=== PATIENT | female | born 1995 | race African-American/Black ===

== ENCOUNTER 2025-04-09 20:52 | Inpatient (IN) | payer OTHER, SELFPAY ==
[2025-04-09] VITALS (7 sets, daily range): BP systolic 147–159; BP diastolic 94–115; PULSE 69–88; RESP 15–22; TEMP 36.6; O2SAT 99–100
--- NOTE | ~2025-04-09 | CT_ITS ---
CT of the Abdomen and Pelvis: Indication: Abdominal pain Technique: 2.5 mm axial scans were obtained through the abdomen and pelvis following intravenous adm inistration of 100 cc of Omnipaque 350. Dose reduction technique was used on this scan by utilizing a utomated exposure control and iterative reconstruction technique. The dose-length product (DLP) was 3 58.52 mGy-cm. Findings: Scans through the lung bases are unremarkable. There is diffuse hepatic steatosis. The spleen, pancreas, gallbladder, adrenals and kidneys are withi n normal limits. No evidence of aortic aneurysm. No lymphadenopathy. There is probable mild extensive wall thickening of large bowel, especially descending and sigmoid co yazmin and rectum. Probable additional mild wall thickening of the distal/terminal ileum. No bowel obstr uction. No abscess or free air. Images through the pelvis were performed. Urinary bladder unremarkable. No adnexal mass seen. No asci tiffanie. Impression: Wall thickening extensively involving the descending and sigmoid colon and rectum, as well as probabl y the distal/terminal ileum. Correlate for inflammatory bowel disease or other infectious/inflammator y enterocolitis. Diffuse hepatic steatosis. Reviewed, dictated and finalized at location . Impression: Wall thickening extensively involving the descending and sigmoid colon and rect um, as well as probably the distal/terminal ileum. Correlate for inflammatory b owel disease or other infectious/inflammatory enterocolitis. Diffuse hepatic steatosis.
[2025-04-09 21:14] LABS: Hematocrit 33.4 % (37.0-47.0); Hemoglobin 11.1 g/dL (12.0-15.0); Immature Granulocyte Percent A 0.2 % (0-0.5); Lymphocytes Absolute Auto 2.08 K/mm3 (0.9-3.2); Mean Corpuscular HGB Conc 33.2 g/dl (32-36); Mean Corpuscular Hemoglobin 27.4 pg (26-34); Mean Corpuscular Volume 82.5 fl (80-100); Nucleated Red Blood Cells Absolute Auto 0.000 K/mm3 (0.0-0.012); Nucleated Red Blood Cells Perc 0.0 % (0.0-0.2); Platelet Count Result 285 k/mm3 (150-375); Red Blood Count 4.05 M/mm3 (4.2-5.4); White Blood Count 5.6 K/mm3 (4.5-10.0)
[2025-04-09 21:28] LABS: Alanine Aminotransferase 38 U/L (6-35); Albumin Level 4.0 g/dL (3.5-5.1); Alkaline Phosphatase 55 U/L (38-126); Anion Gap 7 mmol/L (4-12); Aspartate Amino Transferase 52 U/L (14-36); Bilirubin,Total 0.4 mg/dL (0.2-1.3); Blood Urea Nitrogen 6 mg/dL (7-17); Calcium 8.8 mg/dL (8.4-10.2); Carbon Dioxide 24 mmol/L (22-30); Chloride 105 mmol/L (98-107); Estimated CRCL calculation 120 ml/min; Estimated Glomerular Filt Rate > 60; Glucose 85 mg/dL (65-110); Lipase 151 U/L (23-300); Potassium 2.9 mmol/L (3.4-5.0); Sodium 136 mmol/L (137-145); Total Protein 7.4 g/dL (6.3-8.2)
[2025-04-09 23:30] LABS: BEDSIDEPREGUCG Negative (Negative)
[2025-04-09 23:45] LABS: Add Urine Microscopic? YES; Appearance Urine Cloudy (Clear); Glucose Urine UA Negative (Negative); Leukocyte Esterase Ur Trace LEU/UL (Negative); Nitrate Urine Positive (Negative); Non Pathogenic Casts 0-2; Specific Grav Ur 1.015 (1.001-1.035)
[2025-04-10] VITALS (32 sets, daily range): BP systolic 112–165; BP diastolic 69–115; PULSE 59–80; RESP 8–20; TEMP 36.3–36.7; O2SAT 93–100; BMI 23.8
[2025-04-10 00:03] LABS: Magnesium 1.3 mg/dL (1.6-2.3)
[2025-04-10] MEDS: MAGNESIUM SULF 2 GM/WATER 50ML 2 GM/50 ML BAG IVPB (00:47)
--- NOTE | 2025-04-10 01:12 | ED_ITS ---
HPI - Abdominal Pain General Chief Complaint: Abdominal Pain <LISA Hitchcock Last Filed: 04/10/25 02:52> Stated Complaint: Abd pain, blood in stool, Crohns flare up <LSIA Hitchcock Last Filed: 04/10/25 02:52> Time Seen by Provider: 04/09/25 23:47 <LISA Hitchcock Last Filed: 04/10/25 02:52> Source: patient <LISA Hitchcock Last Filed: 04/10/25 02:52> Mode of arrival: ambulatory <LISA Hitchcock Last Filed: 04/10/25 02:52> Limitations: no limitations <Юлия Lees PA-C - Last Filed: 04/10/25 02:52> History of Present Illness HPI narrative: This is a 30 year old female that presents to the ER for abdominal pain, blood in stool. Ongoing over the last week. Reports history of Chron's disease. Does not currently have a GI doctor, is not on any medications. Also reports the last time she was hospitalized for a flare she was told she may have cervical cancer and did not follow up any further. Denies fevers, vomiting, dysuria, hematuria. <Юлия Lees PA-C - Last Filed: 04/10/25 02:52> Related Data Home Medications: Home Medications ?Medication ?Instructions ?Recorded ?Confirmed ?Last Taken ?Type amlodipine 10 mg tablet 10 mg PO DAILY 04/10/25 04/10/25 Unknown History <LISA Hitchcock Last Filed: 04/10/25 02:52> Allergies/Adverse Reactions: Allergies Allergy/AdvReac Type Severity Reaction Status Date / Time No Known Allergies Allergy Verified 04/10/25 03:37 <LISA Hitchcock Last Filed: 04/10/25 02:52> Review of Systems 2 Review of Systems: All systems reviewed & are unremarkable except as noted in HPI and below <LISA Hitchcock Last Filed: 04/10/25 02:52> [facility] Past Medical History Medical History: Medical History (Updated 04/10/25 @ 14:31 by Delia Miller PA-C) HTN (hypertension) with goal to be determined Crohn disease <Юлия Lees PA-C - Last Filed: 04/10/25 02:52> Family History Family History: Family History Mother Thyroid cancer Lupus Arthritis Father CHF (congestive heart failure) Cerebrovascular accident <Юлия Lees PA-C - Last Filed: 04/10/25 02:52> Social History Social History: Social History Smoking packs per day: 0.15 Smoking cigarettes per day: 3.0 Smoking status: Current every day smoker Tobacco type: cigarettes Alcohol intake: current Substance use: current Substance use type: marijuana Do You Feel Safe in your Home?: Yes Lack of Transportation: No Lack of Food: Never True Current Housing: I Have Housing Concerned About Future Housing: No Difficulty Paying Gas/Electric Bills: YES Difficulty Paying for Meds: No Currently Unemployed: YES Education: High School Diploma/GED Difficulty w/ Childcare or Family Care: No Spiritual care concerns: No <Юлия Lees PA-C - Last Filed: 04/10/25 02:52> Exam 2 Narrative: GENERAL: Well-appearing, well-nourished, and in no acute distress. HEAD: Normocephalic, atraumatic. EYES: EOMI. CHEST: Clear to auscultation. No respiratory distress. No wheezes rales or rhonchi HEART: Regular rate and rhythm. No murmur heard. Normal peripheral pulses. ABDOMEN: Soft, nondistended, normal active bowel sounds. Tender to palpation throughout the abdomen, without guarding EXTREMITIES: Normal range of motion. No edema. SKIN: Warm, dry, no rash. NEURO: No focal deficits. Alert and oriented x3. PSYCH: Normal mood and affect RECTAL: Hemoccult negative <Юлия Lees PA-C - Last Filed: 04/10/25 02:52> Course Course Emergency Course: patient updated on her workup and recommendation for admission <Юлия Lees PA-C - Last Filed: 04/10/25 02:52> [employer]/PA Physician Supervision Patient being admitted. I was made aware of this and was available for consultation while patient was in the emergency department but otherwise did not personally evaluate her and was not directly involved in her care while in the emergency department. <Lorraine Short MD - Last Filed: 04/10/25 17:53> Consultations Consultation #1: Spoke with hospitalist about patient and workup who accepts admission < Юлия Lees PA-C - Last Filed: 04/10/25 02:52> Date: 04/10/25 <Юлия Lees PA-C - Last Filed: 04/10/25 02:52> Vital Signs Vital signs: Vital Signs Temperature 98 F 04/09/25 20:59 Pulse Rate 88 04/09/25 20:59 Respiratory Rate 18 04/09/25 20:59 Blood Pressure 158/115 H 04/09/25 20:59 Pulse Oximetry 99 04/09/25 20:59 Oxygen Delivery Room Air 04/09/25 20:59 Temperature 98.0 F 04/10/25 14:00 Pulse Rate 59 L 04/10/25 14:00 Respiratory Rate 18 04/10/25 14:00 Blood Pressure 119/72 04/10/25 15:50 Pulse Oximetry 100 04/10/25 14:00 Oxygen Delivery Room Air 04/10/25 08:00 <Юлия Lees PA-C - Last Filed: 04/10/25 02:52> Vital Signs Temperature 98 F 04/09/25 20:59 Pulse Rate 88 04/09/25 20:59 Respiratory Rate 18 04/09/25 20:59 Blood Pressure 158/115 H 04/09/25 20:59 Pulse Oximetry 99 04/09/25 20:59 Oxygen Delivery Room Air 04/09/25 20:59 Temperature 98.0 F 04/10/25 14:00 Pulse Rate 59 L 04/10/25 14:00 Respiratory Rate 18 04/10/25 14:00 Blood Pressure 119/72 04/10/25 15:50 Pulse Oximetry 100 04/10/25 14:00 Oxygen Delivery Room Air 04/10/25 08:00 <Lorraine Short MD - Last Filed: 04/10/25 17:53> MDM - Abdominal Pain MDM Narrative Medical decision making narrative: Patient presents the emergency department for abdominal pain, bloody stools. History of inflammatory bowel disease. Reports she does not currently have a GI doctor and is not on any medications. She is afebrile and nontoxic appearing. Cbc without leukocytosis. Shows normocytic anemia hemoglobin of 11.1. Metabolic panel with mild hypokalemia. Hypomagnesemia also noted. Electrolytes replaced. Urine nitrate positive with 6-10 white blood cells, patient does not have any urinary symptoms. Will await culture results. CT abdomen and pelvis shows terminal ileitis as well as distal colitis. Patient updated on her workup and recommendation for admission. Spoke with hospitalist about patient and workup who accepts admission. Will place consult for GI. Patient given a dose of Solu-Medrol in the ED <Юлия Lees PA-C - Last Filed: 04/10/25 02:52> Differential Diagnosis Differential diagnosis: Likely diverticulitis, small bowel obstruction and other (Chron's flare, hemorrhoid, fissure) <Юлия Lees PA-C - Last Filed: 04/10/25 02:52> Lab Data Attestation: I reviewed the patient's lab results. <Юлия Lees PA-C - Last Filed: 04/10/25 02:52> Result diagrams: 04/09/25 21:08 04/10/25 07:56 <Юлия Lees PA-C - Last Filed: 04/10/25 02:52> Labs: Lab Results 04/09/25 04/09/25 04/09/25 Range/Units 21:07 21:08 23:28 WBC 5.6 (4.5-10.0) K/mm3 RBC 4.05 L (4.2-5.4) M/mm3 Hgb 11.1 L (12.0-15.0) g/dL Hct 33.4 L (37.0-47.0) % MCV 82.5 (80-100) fl MCH 27.4 (26-34) pg MCHC 33.2 (32-36) g/dl RDW 14.7 H (11.5-14.5) % Plt Count 285 (150-375) k/mm3 MPV 8.5 (7.4-10.4) fl Immature Gran % (Auto) 0.2 (0-0.5) % Neut % (Auto) 47.4 (45.5-73.1) % Lymph % (Auto) 37.5 (18.3-44.2) % [place] % (Auto) 13.2 H (2.6-8.5) % Eos % (Auto) 1.3 (0-4.4) % Baso % (Auto) 0.4 (0.2-1.2) % Lymph # (Auto) 2.08 (0.9-3.2) K/mm3 [place] # (Auto) 0.7 H (0.1-0.6) K/mm3 Eos # (Auto) 0.1 (0-0.3) K/mm3 Baso # (Auto) 0.0 (0.0-0.1) K/mm3 Abs Immat Gran (auto) 0.01 (0.00-0.031) K/mm3 Absolute Neuts (auto) 2.6 (1.3-6.7) K/mm3 Absolute Nucleated RBC 0.000 (0.0-0.012) K/mm3 Nucleated RBC % 0.0 (0.0-0.2) % Sodium 136 L (137-145) mmol/L Potassium 2.9 L (3.4-5.0) mmol/L Chloride 105 (98-107) mmol/L Carbon Dioxide 24 (22-30) mmol/L Anion Gap 7 (4-12) mmol/L BUN 6 L (7-17) mg/dL Creatinine 0.60 L (0.7-1.0) mg/dL Estim Creat Clear Calc 120 ml/min Estimated GFR > 60 (59 - ) Glucose 85 (65-110) mg/dL Calcium 8.8 (8.4-10.2) mg/dL Magnesium 1.3 L (1.6-2.3) mg/dL Total Bilirubin 0.4 (0.2-1.3) mg/dL AST 52 H (14-36) U/L ALT 38 H (6-35) U/L Alkaline Phosphatase 55 (38-126) U/L Total Protein 7.4 (6.3-8.2) g/dL Albumin 4.0 (3.5-5.1) g/dL Lipase 151 (23-300) U/L Urine Color Yellow (Yellow) Urine Appearance Cloudy H (Clear) Urine pH 6.0 (5.0-9.0) Ur Specific [place] 1.015 (1.001-1.035) Urine Protein Trace (Negative) mg/dL Urine Glucose (UA) Negative (Negative) mg/dL Urine Ketones Trace H (Negative) mg/dL Ur Blood (Man) 2+ H (Negative) Urine Nitrate Positive H (Negative) Urine Bilirubin Negative (Negative) Urine Urobilinogen 0.2 (<2.0) mg/dL Leukocyte Esterase Rfl Trace H (Negative) YUE/UL Urine RBC 6-10 H (0-2) /hpf Urine WBC 6-10 H (0-3) /hpf Ur Squamous Epith Cells Few (Few) /hpf Urine Bacteria 4+ H /hpf Urine Casts 0-2 POC Urine HCG, Qual Negative (Negative) <Юлия Lees PA-C - Last Filed: 04/10/25 02:52> Lab Results 04/09/25 04/09/25 04/09/25 Range/Units 21:07 21:08 23:28 WBC 5.6 (4.5-10.0) K/mm3 RBC 4.05 L (4.2-5.4) M/mm3 Hgb 11.1 L (12.0-15.0) g/dL Hct 33.4 L (37.0-47.0) % MCV 82.5 (80-100) fl MCH 27.4 (26-34) pg MCHC 33.2 (32-36) g/dl RDW 14.7 H (11.5-14.5) % Plt Count 285 (150-375) k/mm3 MPV 8.5 (7.4-10.4) fl Immature Gran % (Auto) 0.2 (0-0.5) % Neut % (Auto) 47.4 (45.5-73.1) % Lymph % (Auto) 37.5 (18.3-44.2) % [place] % (Auto) 13.2 H (2.6-8.5) % Eos % (Auto) 1.3 (0-4.4) % Baso % (Auto) 0.4 (0.2-1.2) % Lymph # (Auto) 2.08 (0.9-3.2) K/mm3 [place] # (Auto) 0.7 H (0.1-0.6) K/mm3 Eos # (Auto) 0.1 (0-0.3) K/mm3 Baso # (Auto) 0.0 (0.0-0.1) K/mm3 Abs Immat Gran (auto) 0.01 (0.00-0.031) K/mm3 Absolute Neuts (auto) 2.6 (1.3-6.7) K/mm3 Absolute Nucleated RBC 0.000 (0.0-0.012) K/mm3 Nucleated RBC % 0.0 (0.0-0.2) % Sodium 136 L (137-145) mmol/L Potassium 2.9 L (3.4-5.0) mmol/L Chloride 105 (98-107) mmol/L Carbon Dioxide 24 (22-30) mmol/L Anion Gap 7 (4-12) mmol/L BUN 6 L (7-17) mg/dL Creatinine 0.60 L (0.7-1.0) mg/dL Estim Creat Clear Calc 120 ml/min Estimated GFR > 60 (59 - ) Glucose 85 (65-110) mg/dL Calcium 8.8 (8.4-10.2) mg/dL Magnesium 1.3 L (1.6-2.3) mg/dL Total Bilirubin 0.4 (0.2-1.3) mg/dL AST 52 H (14-36) U/L ALT 38 H (6-35) U/L Alkaline Phosphatase 55 (38-126) U/L Total Protein 7.4 (6.3-8.2) g/dL Albumin 4.0 (3.5-5.1) g/dL Lipase 151 (23-300) U/L Urine Color Yellow (Yellow) Urine Appearance Cloudy H (Clear) Urine pH 6.0 (5.0-9.0) Ur Specific [place] 1.015 (1.001-1.035) Urine Protein Trace (Negative) mg/dL Urine Glucose (UA) Negative (Negative) mg/dL Urine Ketones Trace H (Negative) mg/dL Ur Blood (Man) 2+ H (Negative) Urine Nitrate Positive H (Negative) Urine Bilirubin Negative (Negative) Urine Urobilinogen 0.2 (<2.0) mg/dL Leukocyte Esterase Rfl Trace H (Negative) YUE/UL Urine RBC 6-10 H (0-2) /hpf Urine WBC 6-10 H (0-3) /hpf Ur Squamous Epith Cells Few (Few) /hpf Urine Bacteria 4+ H /hpf Urine Casts 0-2 POC Urine HCG, Qual Negative (Negative) <Lorraine Short MD - Last Filed: 04/10/25 17:53> Imaging Data Radiologist's impression: ITS Impressions Abdomen/Pelvis CT 04/10/25 05:13 Impression: Wall thickening extensively involving the descending and sigmoid colon and rectum, as well as probably the distal/terminal ileum. Correlate for inflammatory bowel disease or other infectious/inflammatory enterocolitis. Diffuse hepatic steatosis. CT abdomen pelvis: Postsurgical changes involving ascending colon consistent with previous subsegmental colectomy. Concentric mucosal thickening of the terminal ileum extending to the anastomosis. The appearance is most consistent with inflammatory or infectious terminal ileitis. There is also mucosal prominence with hyperenhancement of the partially decompressed sigmoid colon. The appearance suggests coexisting distal colitis. No evidence for focal high- grade bowel obstruction. Cystic changes involving the right adnexa. The uterus and left adnexa are unremarkable <Юлия Lees PA-C - Last Filed: 04/10/25 02:52> ITS Impressions Abdomen/Pelvis CT 04/10/25 05:13 Impression: Wall thickening extensively involving the descending and sigmoid colon and rectum, as well as probably the distal/terminal ileum. Correlate for inflammatory bowel disease or other infectious/inflammatory enterocolitis. Diffuse hepatic steatosis. <Lorraine Short MD - Last Filed: 04/10/25 17:53> Critical Care Time Critical Care Time Critical Care Time: No <Юлия Lees PA-C - Last Filed: 04/10/25 02:52> Discharge Plan Discharge Clinical Impression: Inflammatory bowel disease, Acute hypokalemia, Hypomagnesemia <Юлия Lees PA-C - Last Filed: 04/10/25 02:52> Patient Disposition: Still a Patient <LISA Hitchcock Last Filed: 04/10/25 02:52> Condition: Stable <LISA Hitchcock Last Filed: 04/10/25 02:52>
[2025-04-10] MEDS: MORPHINE SULFATE (*CRX) 4 MG/ML INJ IV PUSH ×3 (01:18→20:42)
[2025-04-10] MEDS: ONDANSETRON INJ 4 MG/2 ML VIAL IV PUSH (01:18)
[2025-04-10] MEDS: POTASSIUM CHLORIDE INJ 40 MEQ in SODIUM CHLORIDE 0.9% IV 500 ML 130 MEQ IVPB (02:49)
[2025-04-10] MEDS: SODIUM CHLORIDE 0.9% IV 1,000 ML 125 ML IV CONT ×2 (02:50→10:04)
[2025-04-10] MEDS: ACETAMINOPHEN 500 MG TABLET 1000 MG PO (02:51)
--- NOTE | 2025-04-10 03:38 | PC.NURSE ---
PATIENT ARRIVED ON [facility] AT 0330
[2025-04-10 08:30] LABS: CRP 0.6 mg/dL (<1.0)
--- NOTE | 2025-04-10 08:38 | P.HP_ITS ---
H&P: HPI History of Present Illness Date/Time: 04/10/25 08:38 Chief Complaint: Stomach pain Narrative: Patient is a 30-year-old female with a past medical history of untreated Crohn's who presented emergency room for stomach pains. This pain started about 2 and half weeks ago and has been continuous. She noted some bright red blood in her stools starting last . The pain is diffuse but mostly in the right lower quadrant. She has had diarrhea daily because but today she is little bit more constipated. She said the stool was initially black but then turned to green and is now brown. She does not any nausea or vomiting but has not really eaten today. She has no history of C diff. Her last colonoscopy was in 2022 which showed Crohn's disease. 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 She states she has not been on preventative medication due to non adherence. She denies issues with access to care or affording medications. She denies chest pain, shortness of breath, fever, cough or any neurological symptoms. She was told at 1 point they were looking for colon cancer or cervical cancer and she can not remember which 1 but has never had a Pap smear. When asked why, she says she just has not made it a priority but will do so when she gets out of the hospital. She is from [facility] but is agreeable to continue to see GI here as an outpatient. She has no history of gastric ulcer or C diff. she says that every couple years she has to be hospitalized due to Crohn's but she battles stomach pains at home fairly often. She has a hx of HTN. No hx of IV drug use or liver problems. No dysuria or hematuria. Pt drinks about 6 beers a day. Has no hx of alcohol withdraw. She denies tremors or anxiety today. Review of Systems Review of Systems: All systems reviewed & are unremarkable except as noted in HPI and below PMFSH Past Medical History Medical History (Updated 04/10/25 @ 14:31 by Delia Miller PA-C) HTN (hypertension) with goal to be determined Crohn disease Family History Family History Mother Thyroid cancer Lupus Arthritis Father CHF (congestive heart failure) Cerebrovascular accident Social History Social History Smoking packs per day: 0.15 Smoking cigarettes per day: 3.0 Smoking status: Current every day smoker Tobacco type: cigarettes Alcohol intake: current Substance use: current Substance use type: marijuana Do You Feel Safe in your Home?: Yes Lack of Transportation: No Lack of Food: Never True Current Housing: I Have Housing Concerned About Future Housing: No Difficulty Paying Gas/Electric Bills: YES Difficulty Paying for Meds: No Currently Unemployed: YES Education: High School Diploma/GED Difficulty w/ Childcare or Family Care: No Spiritual care concerns: No Meds Home Medications and Allergies Home Medications ?Medication ?Instructions ?Recorded ?Confirmed ?Type amlodipine 10 mg tablet 10 mg PO DAILY 04/10/25 04/10/25 History Allergies Allergy/AdvReac Type Severity Reaction Status Date / Time No Known Allergies Allergy Verified 04/10/25 03:37 Vital Signs Vital Signs - 24 hr 04/09/25 20:59 04/09/25 23:17 04/09/25 23:27 Temperature 98 F Pulse Rate 88 79 69 Respiratory Rate 18 22 H 17 Blood Pressure 158/115 H 159/100 H Pulse Oximetry 99 100 Oxygen Delivery Room Air 04/09/25 23:30 04/09/25 23:31 04/09/25 23:45 Temperature Pulse Rate 76 74 74 Respiratory Rate 15 18 16 Blood Pressure 157/94 H Pulse Oximetry 100 100 100 Oxygen Delivery 04/09/25 23:46 04/10/25 00:16 04/10/25 00:17 Temperature Pulse Rate 80 71 71 Respiratory Rate 19 8 L 16 Blood Pressure 147/99 H 165/110 H Pulse Oximetry 99 100 100 Oxygen Delivery 04/10/25 00:30 04/10/25 00:31 04/10/25 00:32 Temperature Pulse Rate 71 75 73 Respiratory Rate 13 20 17 Blood Pressure 163/115 H Pulse Oximetry 100 Oxygen Delivery 04/10/25 00:45 04/10/25 00:46 04/10/25 01:00 Temperature Pulse Rate 70 70 78 Respiratory Rate 16 15 18 Blood Pressure 133/90 Pulse Oximetry 100 100 100 Oxygen Delivery 04/10/25 01:01 04/10/25 01:15 04/10/25 01:16 Temperature Pulse Rate 76 71 71 Respiratory Rate 18 15 17 Blood Pressure 146/94 H 146/95 H Pulse Oximetry 100 99 100 Oxygen Delivery 04/10/25 01:30 04/10/25 01:31 04/10/25 01:45 Temperature Pulse Rate 69 69 70 Respiratory Rate 12 13 14 Blood Pressure 135/90 Pulse Oximetry 97 98 99 Oxygen Delivery 04/10/25 01:46 04/10/25 02:00 04/10/25 02:01 Temperature Pulse Rate 67 69 66 Respiratory Rate 13 13 14 Blood Pressure 120/69 112/71 Pulse Oximetry 98 99 100 Oxygen Delivery 04/10/25 02:15 04/10/25 02:16 04/10/25 02:53 Temperature Pulse Rate 68 66 80 Respiratory Rate 14 14 14 Blood Pressure 115/74 Pulse Oximetry 100 100 Oxygen Delivery 04/10/25 02:55 04/10/25 03:00 04/10/25 03:01 Temperature Pulse Rate 72 64 63 Respiratory Rate 14 16 14 Blood Pressure 154/108 H 142/100 H Pulse Oximetry 93 100 100 Oxygen Delivery 04/10/25 03:02 04/10/25 03:15 04/10/25 03:16 Temperature Pulse Rate 72 66 68 Respiratory Rate 13 16 14 Blood Pressure 131/96 H Pulse Oximetry 100 99 99 Oxygen Delivery 04/10/25 03:20 04/10/25 03:33 04/10/25 05:22 Temperature 97.7 F 97.8 F Pulse Rate 68 63 Respiratory Rate 14 14 Blood Pressure 131/96 H 151/103 H Pulse Oximetry 99 100 Oxygen Delivery Room Air Exam Narrative: General:Well developed well nourished patient HEENT: Normocephalic, atraumatic, PERRL, Sclerae anicteric, oral mucosa moist. Neck: Supple Resp: CTA Heart: RRR with no murmurs Abd: Soft and non distended but significant pain throughout most notably the RLQ. No guarding. + bowel sounds Skin: Warm and dry Extremities: No swelling, erythema or pain to palpation Neuro: Alert and Oriented x4. No focal neurological deficits. no tremor noted H&P: Results Labs Labs: Short CBC 04/09/25 Range/Units 21:08 WBC 5.6 (4.5-10.0) K/mm3 Hgb 11.1 L (12.0-15.0) g/dL Hct 33.4 L (37.0-47.0) % Plt Count 285 (150-375) k/mm3 BMP 04/09/25 21:08 Sodium 136 L Potassium 2.9 L Chloride 105 Carbon Dioxide 24 BUN 6 L Creatinine 0.60 L Glucose 85 Calcium 8.8 Liver Function 04/09/25 Range/Units 21:08 Total Bilirubin 0.4 (0.2-1.3) mg/dL AST 52 H (14-36) U/L ALT 38 H (6-35) U/L Alkaline Phosphatase 55 (38-126) U/L Albumin 4.0 (3.5-5.1) g/dL Urine 04/09/25 Range/Units 23:28 Urine Color Yellow (Yellow) Urine Appearance Cloudy H (Clear) Urine pH 6.0 (5.0-9.0) Ur Specific [place] 1.015 (1.001-1.035) Urine Protein Trace (Negative) mg/dL Urine Glucose (UA) Negative (Negative) mg/dL Assessment and Plan Assessment and plan (1) Exacerbation of Crohn's disease: Code(s): K50.90 - Crohn's disease, unspecified, without complications Status: Acute Assessment and Plan: CT with evidence of wall thickening in descending and sigmoid colon and rectum as well as distal ileum. -pt with hx of crohns under no preventive tx and does not have a GI provider -Start IV methylprednisolone 60mg daily -IV pain medications ordered due to NPO status -GI consult -Consider stool cx but pt afebrile with nml WBC and with hx of crohns infx seems less likely so will hold off (2) Acute hypokalemia: Code(s): E87.6 - Hypokalemia Status: Acute Assessment and Plan: Likely due to diarrhea -Replace potassium as well as mag (3) Hypomagnesemia: Code(s): E83.42 - Hypomagnesemia Status: Acute Assessment and Plan: Replaced, recheck with todays labs (4) HTN (hypertension) with goal to be determined: Code(s): I10 - Essential (primary) hypertension Status: Acute Assessment and Plan: Likely more elevated d/t pain -start home amlodipine -may consider PRN tx but will wait until she gets her home medications and see how she runs (5) Pyuria: Code(s): R82.81 - Pyuria Status: Acute Assessment and Plan: UA appears infectious but pt not symptomatic -ceftriaxone, await urine culture (6) Transaminitis: Code(s): R74.01 - Elevation of levels of liver transaminase levels Status: Acute Assessment and Plan: Noted on labs -check hepatitis panel -hepatic steatosis noted on CT -f/u with GI, consider u/s (7) Alcohol use: Code(s): F10.90 - Alcohol use, unspecified, uncomplicated Status: Acute Assessment and Plan: drinks 6 beers a day -no hx of withdraw -no anxiety, tremors or concerns as of now -CIWA w/ ativan for scores 8 or higher Plan Encouraged pt to f/u with OBGYN for routine pap smear SCDs due to concerns for blood in stool SP for this history and physical Dr. Weber Quality VTE Prophylaxis VTE prophylaxis: mechanical ordered
[2025-04-10 10:16] LABS: Alanine Aminotransferase 37 U/L (6-35); Albumin Level 4.2 g/dL (3.5-5.1); Alkaline Phosphatase 65 U/L (38-126); Anion Gap 12 mmol/L (4-12); Aspartate Amino Transferase 46 U/L (14-36); Bilirubin,Total 0.4 mg/dL (0.2-1.3); Blood Urea Nitrogen 5 mg/dL (7-17); Calcium 8.5 mg/dL (8.4-10.2); Carbon Dioxide 20 mmol/L (22-30); Chloride 105 mmol/L (98-107); Estimated CRCL calculation 129 ml/min; Estimated Glomerular Filt Rate > 60; Glucose 93 mg/dL (65-110); Magnesium 1.8 mg/dL (1.6-2.3); Potassium 3.6 mmol/L (3.4-5.0); Sodium 137 mmol/L (137-145); Total Protein 7.7 g/dL (6.3-8.2)
[2025-04-10 10:50] LABS: Hepatitis B Surface Antigen Negative (Negative)
[2025-04-10] MEDS: MORPHINE SULFATE (*CRX) 2 MG/ML INJ IV PUSH ×2 (11:58→13:30)
--- NOTE | 2025-04-10 13:59 | P.CONGI_ITS ---
Assessment and Plan Assessment and plan (1) Crohn disease: Code(s): K50.90 - Crohn's disease, unspecified, without complications Status: Acute Assessment and Plan: The patient is likely experiencing an acute exacerbation of Crohn's disease, which has been largely untreated for the past 10 years. To accurately stage the disease extension and severity, we will perform a colonoscopy tomorrow . In addition to the colonoscopy, we will order the following laboratory tests to assess for appropriate biologic therapy: QuantiFERON, HBsAg, TPMT phenotype, stool calprotectin, and CRP. The patient will likely require systemic steroids to manage the current flare until a suitable biologic therapy can be determined. GI Consult Note Consult date/time: 04/10/25 13:59 Reason for consult: History of Crohn's disease HPI: Zohra Kenney is a 30-year-old female with a history of Crohn's disease, diagnosed in 2014. She was initially placed on steroids but did not follow up with a data entry technician after tapering off the medication. In 2015, she experienced a severe flare-up, complicated by a fistula and intestinal obstruction, leading to a resection at [facility]; she does not recall the resected intestinal segment. Another flare-up in 2018 was treated by her general physician, again without gastroenterology consultation. She was doing well until one week prior to admission when she developed severe, crampy lower abdominal pain with bloody diarrhea. She is currently taking no medication for Crohn's disease. A CT scan revealed wall thickening in the descending and sigmoid colon, with possible terminal ileum involvement. Admission laboratory data included a white count of 5.6, hemoglobin of 11.1, hematocrit of 33.4, platelet count of 286, sodium of 136, potassium of 2.9, BUN of 6, creatinine of 0.6, AST of 52, and ALT of 38. Review of Systems 2 Review of Systems: All systems reviewed & are unremarkable except as noted in HPI and below PMFSH Past Medical History Medical History (Updated 04/10/25 @ 08:49 by Delia Miller PA-C) Crohn disease Family History Family History (Updated 04/10/25 @ 03:49 by Kobi Antonio RN) Mother Thyroid cancer Lupus Arthritis Father CHF (congestive heart failure) Cerebrovascular accident Social History Social History Smoking packs per day: 0.15 Smoking cigarettes per day: 3.0 Smoking status: Current every day smoker Tobacco type: cigarettes Alcohol intake: current Substance use: current Substance use type: marijuana Do You Feel Safe in your Home?: Yes Lack of Transportation: No Lack of Food: Never True Current Housing: I Have Housing Concerned About Future Housing: No Difficulty Paying Gas/Electric Bills: YES Difficulty Paying for Meds: No Currently Unemployed: YES Education: High School Diploma/GED Difficulty w/ Childcare or Family Care: No Spiritual care concerns: No Meds Home Medications and Allergies Home Medications ?Medication ?Instructions ?Recorded ?Confirmed ?Type amlodipine 10 mg tablet 10 mg PO DAILY 04/10/25 04/10/25 History Allergies Allergy/AdvReac Type Severity Reaction Status Date / Time No Known Allergies Allergy Verified 04/10/25 03:37 Vital Signs Vital Signs - 24 hr 04/09/25 20:59 04/09/25 23:17 04/09/25 23:27 Temperature 98 F Pulse Rate 88 79 69 Respiratory Rate 18 22 H 17 Blood Pressure 158/115 H 159/100 H Pulse Oximetry 99 100 Oxygen Delivery Room Air 04/09/25 23:30 04/09/25 23:31 04/09/25 23:45 Temperature Pulse Rate 76 74 74 Respiratory Rate 15 18 16 Blood Pressure 157/94 H Pulse Oximetry 100 100 100 Oxygen Delivery 04/09/25 23:46 04/10/25 00:16 04/10/25 00:17 Temperature Pulse Rate 80 71 71 Respiratory Rate 19 8 L 16 Blood Pressure 147/99 H 165/110 H Pulse Oximetry 99 100 100 Oxygen Delivery 04/10/25 00:30 04/10/25 00:31 04/10/25 00:32 Temperature Pulse Rate 71 75 73 Respiratory Rate 13 20 17 Blood Pressure 163/115 H Pulse Oximetry 100 Oxygen Delivery 04/10/25 00:45 04/10/25 00:46 04/10/25 01:00 Temperature Pulse Rate 70 70 78 Respiratory Rate 16 15 18 Blood Pressure 133/90 Pulse Oximetry 100 100 100 Oxygen Delivery 04/10/25 01:01 04/10/25 01:15 04/10/25 01:16 Temperature Pulse Rate 76 71 71 Respiratory Rate 18 15 17 Blood Pressure 146/94 H 146/95 H Pulse Oximetry 100 99 100 Oxygen Delivery 04/10/25 01:30 04/10/25 01:31 04/10/25 01:45 Temperature Pulse Rate 69 69 70 Respiratory Rate 12 13 14 Blood Pressure 135/90 Pulse Oximetry 97 98 99 Oxygen Delivery 04/10/25 01:46 04/10/25 02:00 04/10/25 02:01 Temperature Pulse Rate 67 69 66 Respiratory Rate 13 13 14 Blood Pressure 120/69 112/71 Pulse Oximetry 98 99 100 Oxygen Delivery 04/10/25 02:15 04/10/25 02:16 04/10/25 02:53 Temperature Pulse Rate 68 66 80 Respiratory Rate 14 14 14 Blood Pressure 115/74 Pulse Oximetry 100 100 Oxygen Delivery 04/10/25 02:55 04/10/25 03:00 04/10/25 03:01 Temperature Pulse Rate 72 64 63 Respiratory Rate 14 16 14 Blood Pressure 154/108 H 142/100 H Pulse Oximetry 93 100 100 Oxygen Delivery 04/10/25 03:02 04/10/25 03:15 04/10/25 03:16 Temperature Pulse Rate 72 66 68 Respiratory Rate 13 16 14 Blood Pressure 131/96 H Pulse Oximetry 100 99 99 Oxygen Delivery 04/10/25 03:20 04/10/25 03:33 04/10/25 05:22 Temperature 97.7 F 97.8 F Pulse Rate 68 63 Respiratory Rate 14 14 Blood Pressure 131/96 H 151/103 H Pulse Oximetry 99 100 Oxygen Delivery Room Air 04/10/25 08:00 Temperature Pulse Rate Respiratory Rate Blood Pressure Pulse Oximetry 100 Oxygen Delivery Room Air Exam 2 Const: General: cooperative and healthy appearing Resp: Effort & Inspection: normal respiratory effort and able to speak in complete sentences Auscultation: clear to auscultation bilaterally Cardio: Rate: regular rate Rhythm: regular rhythm GI: Inspection: normal to inspection GI Palp: No No hepatosplenomegaly present Auscultation: normal bowel sounds Rectal Exam: deferred Skin: General skin exam: normal color Psych: Appearance: grossly normal Mental Status: mental status grossly normal Results Labs 04/09/25 21:08 04/10/25 07:56 Labs: Short CBC 04/09/25 Range/Units 21:08 WBC 5.6 (4.5-10.0) K/mm3 Hgb 11.1 L (12.0-15.0) g/dL Hct 33.4 L (37.0-47.0) % Plt Count 285 (150-375) k/mm3 BMP 04/09/25 04/10/25 21:08 07:56 Sodium 136 L 137 Potassium 2.9 L 3.6 Chloride 105 105 Carbon Dioxide 24 20 L BUN 6 L 5 L Creatinine 0.60 L 0.55 L Glucose 85 93 Calcium 8.8 8.5 Liver Function 04/09/25 04/10/25 Range/Units 21:08 07:56 Total Bilirubin 0.4 0.4 (0.2-1.3) mg/dL AST 52 H 46 H (14-36) U/L ALT 38 H 37 H (6-35) U/L Alkaline Phosphatase 55 65 (38-126) U/L Albumin 4.0 4.2 (3.5-5.1) g/dL Urine 04/09/25 Range/Units 23:28 Urine Color Yellow (Yellow) Urine Appearance Cloudy H (Clear) Urine pH 6.0 (5.0-9.0) Ur Specific [place] 1.015 (1.001-1.035) Urine Protein Trace (Negative) mg/dL Urine Glucose (UA) Negative (Negative) mg/dL
[2025-04-11] VITALS (11 sets, daily range): BP systolic 113–127; BP diastolic 71–85; PULSE 56–74; RESP 10–26; TEMP 36.1–37.7; O2SAT 97–100
[2025-04-11] MEDS: MORPHINE SULFATE (*CRX) 4 MG/ML INJ IV PUSH ×4 (02:01→21:16)
[2025-04-11 06:40] LABS: Hematocrit 33.9 % (37.0-47.0); Hemoglobin 11.4 g/dL (12.0-15.0); Mean Corpuscular HGB Conc 33.6 g/dl (32-36); Mean Corpuscular Hemoglobin 28.1 pg (26-34); Mean Corpuscular Volume 83.7 fl (80-100); Platelet Count Result 345 k/mm3 (150-375); Red Blood Count 4.05 M/mm3 (4.2-5.4); White Blood Count 4.3 K/mm3 (4.5-10.0)
[2025-04-11 07:03] LABS: Alanine Aminotransferase 33 U/L (6-35); Albumin Level 3.9 g/dL (3.5-5.1); Alkaline Phosphatase 50 U/L (38-126); Anion Gap 9 mmol/L (4-12); Aspartate Amino Transferase 38 U/L (14-36); Bilirubin,Total 0.5 mg/dL (0.2-1.3); Blood Urea Nitrogen 4 mg/dL (7-17); Calcium 8.9 mg/dL (8.4-10.2); Carbon Dioxide 26 mmol/L (22-30); Chloride 104 mmol/L (98-107); Estimated CRCL calculation 114 ml/min; Estimated Glomerular Filt Rate > 60; Glucose 123 mg/dL (65-110); Magnesium 1.8 mg/dL (1.6-2.3); Potassium 3.7 mmol/L (3.4-5.0); Sodium 139 mmol/L (137-145); Total Protein 7.2 g/dL (6.3-8.2)
[2025-04-11 09:34] LABS: Hepatitis B Surface Antigen Negative (Negative)
[2025-04-11 09:40] LABS: HAV RESULT Negative (Negative); Hepatitis B Core IgM Result Negative (Negative)
--- NOTE | 2025-04-11 11:05 | P.PNIM_ITS ---
Progress Note: A&P Assessment and Plan (1) Exacerbation of Crohn's disease: Code(s): K50.90 - Crohn's disease, unspecified, without complications Status: Acute Assessment and Plan: CT with evidence of wall thickening in descending and sigmoid colon and rectum as well as distal ileum. Patient with hx of crohns under no preventive tx and does not have a GI provider. ascending colon was previously removed * continue IV methylprednisolone 60mg daily * IV pain medications * full liquid diet will advance as tolerated per GI * GI consulted * Antiemetics * Colonoscopy today 04/11/2025: Severe diffuse chronic disease a distal ileum with stenosis, ulcerations and diffuse erythema and edema mucosa (2) Acute hypokalemia: Code(s): E87.6 - Hypokalemia Status: Acute Assessment and Plan: * Trend 3.7 today * replenish as needed (3) Hypomagnesemia: Code(s): E83.42 - Hypomagnesemia Status: Acute Assessment and Plan: * Trend 1.8 today * replenish as needed (4) HTN (hypertension) with goal to be determined: Code(s): I10 - Essential (primary) hypertension Status: Acute Assessment and Plan: * Reviewed today stable * continue amlodipine * Bp per unit protocol (5) Pyuria: Code(s): R82.81 - Pyuria Status: Acute Assessment and Plan: UA appears infectious but pt not symptomatic * ceftriaxone, await urine culture (6) Transaminitis: Code(s): R74.01 - Elevation of levels of liver transaminase levels Status: Acute Assessment and Plan: Noted on labs improving * hepatitis panel negative * hepatic steatosis noted on CT (7) Alcohol use: Code(s): F10.90 - Alcohol use, unspecified, uncomplicated Status: Acute Assessment and Plan: drinks 6 beers a day * no hx of withdraw * no anxiety, tremors or concerns as of now * LONNYWA w/ ativan for scores 8 or higher Plan Code status: Full code per patient DVT prophylaxis: SCD's Stress ulcer prophylaxis: NA PT/OT notes: Ambulatory Disposition: Patient continues admission to the medical unit for Crohn's exacerbation will continue with NPO status and IV methylprednisone. patient ambulatory on own plan will be to discharge home when medically stable Time Spent With Patient Time with patient: 15 - 25 minutes Subjective Date/time seen: 04/11/25 11:05 Interval history: Patient is a 30-year-old female who was admitted for further evaluation and treatment Crohn's exacerbation 04/12/2025: Patient seen post Colonoscopy tolerated procedure rates current ABD pain 6/10, sever ulcerations and inflammation noted on colonoscopy report. Patient afebrile, denies any chills, CP, SOB tolerating full liquid currently. Review of Systems Review of Systems: All systems reviewed & are unremarkable except as noted in HPI and below Exam Narrative: General:Well developed well nourished patient HEENT: Normocephalic, atraumatic, PERRL, Sclerae anicteric, oral mucosa moist. Neck: Supple Resp: CTA Heart: RRR with no murmurs Abd: Soft and non distended but significant pain throughout most notably the RLQ. No guarding. + bowel sounds Skin: Warm and dry Extremities: No swelling, erythema or pain to palpation Neuro: Alert and Oriented x4. No focal neurological deficits. no tremor noted Objective Data Vital Signs Vital Signs: Vital Signs - 24 hr 04/10/25 14:00 04/10/25 15:50 04/10/25 20:00 Temperature 98.0 F Pulse Rate 59 L Respiratory Rate 18 Blood Pressure 117/85 119/72 Pulse Oximetry 100 Oxygen Delivery Room Air 04/10/25 20:11 04/11/25 05:08 Temperature 97.3 F L 97.8 F Pulse Rate 62 73 Respiratory Rate 16 16 Blood Pressure 121/82 114/75 Pulse Oximetry 100 100 Oxygen Delivery Intake/Output Intake/Output: Intake & Output 04/08/25 04/09/25 04/10/25 04/11/25 23:59 23:59 23:59 23:59 Intake Total 2584.2 Balance 2584.2 Meds/Results Medications: Active Medications Generic Name Dose Route Start Last Admin Trade Name Freq PRN Reason Stop Dose Admin Amlodipine Besylate 10 mg 04/10/25 09:00 04/11/25 09:14 Amlodipine Besylate 10 Mg Tablet PO 10 mg DAILY ORALIA Administration Ceftriaxone Sodium 1 gm in 50 mls @ 100 mls/hr 04/10/25 09:00 04/11/25 09:14 Rocephin 1 Gm/Ns 50 Ml IVPB 100 mls/hr Q24H ORALIA Administration Lorazepam 0.5 mg 04/10/25 14:36 Lorazepam Inj (*Crx) 2 Mg/Ml Vial IV PUSH Q6H PRN ciwa Methylprednisolone Sodium Succinate 60 mg 04/11/25 09:00 04/11/25 09:14 Methylprednisolone Sod Succ 125 Mg Vial IV PUSH 60 mg DAILY ORALIA Administration Morphine Sulfate 2 mg 04/10/25 06:57 04/10/25 13:30 Morphine Sulfate (*Crx) 2 Mg/Ml Inj IV PUSH 2 mg Q4H PRN Administration Pain Rated 4-6 Morphine Sulfate 4 mg 04/10/25 06:57 04/11/25 06:25 Morphine Sulfate (*Crx) 4 Mg/Ml Inj IV PUSH 4 mg Q4H PRN Administration Pain Rated 7-10 Radiology Results: ITS Impressions Abdomen/Pelvis CT 04/10/25 05:13 Impression: Wall thickening extensively involving the descending and sigmoid colon and rectum, as well as probably the distal/terminal ileum. Correlate for inflammatory bowel disease or other infectious/inflammatory enterocolitis. Diffuse hepatic steatosis. Labs Labs: Laboratory Results - last 24 hr 04/11/25 06:17 WBC 4.3 L RBC 4.05 L Hgb 11.4 L Hct 33.9 L MCV 83.7 MCH 28.1 MCHC 33.6 RDW 14.6 H Plt Count 345 MPV 8.8 Sodium 139 Potassium 3.7 Chloride 104 Carbon Dioxide 26 Anion Gap 9 BUN 4 L Creatinine 0.63 L Estim Creat Clear Calc 114 Estimated GFR > 60 Glucose 123 H Calcium 8.9 Magnesium 1.8 Total Bilirubin 0.5 AST 38 H ALT 33 Alkaline Phosphatase 50 Total Protein 7.2 Albumin 3.9 Hepatitis A IgM Ab Negative Hep Bs Antigen Negative Hep B Core IgM Ab Negative Hepatitis C Ab Screen Negative Quality VTE Prophylaxis VTE prophylaxis: mechanical ordered -Patient's previous records reviewed on admission -ER notes reviewed in detail on admission -discussed all findings and current treatment plan with patient/Family/POA -Consultations reviewed for recommendations -Patient's disposition for safe discharge discussed with patient case coordinator Dictation performed by JOSE Fluency direct speech recognition software, therefore immigration consultant variants and typographical errors may occur. Hospitalist SHANEKA Advance Care Plan I have confirmed that the patient's Advanced Care Plan is present, code status is documented, or surrogate decision maker is listed in patient medical record.: Yes Medication Reconciliation I have utilized all available resources to obtain, update and review the patients current medications (includes all prescriptions, OTC, herbals, cannabis, and nutritional supplements).: Yes The patient is not eligible for med reconciliation; the patient is in a emergent medical situation where delaying treatment would jeopardize the patients health.: No
[2025-04-11] MEDS: MORPHINE SULFATE (*CRX) 2 MG/ML INJ IV PUSH ×2 (11:56→22:42)
--- NOTE | 2025-04-11 12:01 | WPDANESEPPF ---
Anes - Initial Pre Proc Eval Procedure: Operation Date: 04/11/25 15:00 Proposed Procedures p Diagnostic Colonoscopy - Jerry Leal MD Date/Time: 04/11/25 12:01 Surgeon: Elvis Pre Op Diagnosis: Chron's flare Patient Data Age: 30 Gender: F Height: 1.75 m Weight: 73.3 kg Last Vital Signs Temp 36.6 C 04/11/25 05:08 Pulse 73 04/11/25 05:08 Resp 16 04/11/25 05:08 BP 114/75 04/11/25 05:08 Pulse Ox 100 04/11/25 05:08 O2 Del Method Room Air 04/10/25 20:00 Allergies Allergy/AdvReac Type Severity Reaction Status Date / Time No Known Allergies Allergy Verified 04/11/25 12:28 Home Medications ?Medication ?Instructions ?Recorded ?Confirmed ?Type amlodipine 10 mg tablet 10 mg PO DAILY 04/10/25 04/10/25 History Laboratory Tests 04/11/25 06:17 WBC 4.3 L K/mm3 (4.5-10.0) RBC 4.05 L M/mm3 (4.2-5.4) Hgb 11.4 L g/dL (12.0-15.0) Hct 33.9 L % (37.0-47.0) MCV 83.7 fl (80-100) MCH 28.1 pg (26-34) MCHC 33.6 g/dl (32-36) RDW 14.6 H % (11.5-14.5) Plt Count 345 k/mm3 (150-375) MPV 8.8 fl (7.4-10.4) Sodium 139 mmol/L (137-145) Potassium 3.7 mmol/L (3.4-5.0) Chloride 104 mmol/L (98-107) Carbon Dioxide 26 mmol/L (22-30) Anion Gap 9 mmol/L (4-12) BUN 4 L mg/dL (7-17) Creatinine 0.63 L mg/dL (0.7-1.0) Estim Creat Clear Calc 114 ml/min Estimated GFR > 60 (59 - ) Glucose 123 H mg/dL (65-110) Calcium 8.9 mg/dL (8.4-10.2) Magnesium 1.8 mg/dL (1.6-2.3) Total Bilirubin 0.5 mg/dL (0.2-1.3) AST 38 H U/L (14-36) ALT 33 U/L (6-35) Alkaline Phosphatase 50 U/L (38-126) Total Protein 7.2 g/dL (6.3-8.2) Albumin 3.9 g/dL (3.5-5.1) Hepatitis A IgM Ab Negative (Negative) Hep Bs Antigen Negative (Negative) Hep B Core IgM Ab Negative (Negative) Hepatitis C Ab Screen Negative (Negative) Patient hx anesthesia problems: none Family hx anesthesia problems: none Results Review: All pre-operative results and documents have been reviewed as part of the pre-operative evaluation. [facility] Past Medical History Medical History (Updated 04/10/25 @ 14:31 by Delia Miller PA-C) HTN (hypertension) with goal to be determined Crohn disease Family History Family History Mother Thyroid cancer Lupus Arthritis Father CHF (congestive heart failure) Cerebrovascular accident Social History Social History (Updated 04/11/25 @ 12:55 by Manuel Camargo DO) Smoking packs per day: 0.15 Smoking cigarettes per day: 3.0 Smoking status: Current every day smoker Tobacco type: cigarettes Alcohol intake: current Alcohol use details: 6/day Substance use: current Substance use type: marijuana Do You Feel Safe in your Home?: Yes Lack of Transportation: No Lack of Food: Never True Current Housing: I Have Housing Concerned About Future Housing: No Difficulty Paying Gas/Electric Bills: YES Difficulty Paying for Meds: No Currently Unemployed: YES Education: High School Diploma/GED Difficulty w/ Childcare or Family Care: No Spiritual care concerns: No Anes - Eval Final PreProcedure Day of Procedure 04/11/25 12:01 Patient weight: normal Heart: regular rate and rhythm Lungs: clear to auscultation and normal air movement Airway: Mallampati scale class II Neurological: alert and oriented Last oral intake: >/= 8 hours ASA classification: III Emergent: no Anesthetic plan: proceed Anesthesia type and monitoring: general GIVS and standard monitoring Results Review: All pre-operative results and documents have been reviewed as part of the pre-operative evaluation. Informed Consent: The patient's anesthetic plan and its attendant risks and benefits were discussed with the patient/family/POA. Questions were solicited and answers provided to the satisfaction of the patient/family/POA.
[2025-04-11] MEDS: LACTATED RINGERS 1,000 ML 150 ML IV CONT (12:33)
--- NOTE | 2025-04-11 13:26 | S_PTH ---
PATIENT: Zohra Kenney LOC: [id number] U#:[id number] AGE/SX: 30/F ROOM: 313 RE04/12/[address]: Cesar Lopez MD : 1995 BED: 01 DIS: 04/13/2025 SPEC #: [id number] RECD: 04/11/25 13:50 STATUS: JENNIFER REQ #: [id number] JEREMÍAS: 04/11/25 13:[address]: Jerry Leal DEPT: [facility] Surgical RECD BY: Jluis Bhat ENTERED: 04/11/25 13:51 SP TYPE: Surgical OTHR DR: LISA Montero APRN Haresh K. Motwani, MD VIDEO EDITING INTERN PHYSICIAN Solomon Weber MD Tissues: A - Small Bowel Bx Procedures: Hematoxylin and Eosin Stain Gross and Microscopic Level 4
--- NOTE | 2025-04-11 13:35 | P.PNGI_ITS ---
Progress Note: A&P Assessment and Plan (1) Crohn disease: Code(s): K50.90 - Crohn's disease, unspecified, without complications Status: Acute Assessment and Plan: See colonoscopy report. There is severe active ulcerating and inflammatory activity at the ileocolonic anastomosis and the distal ileal mucosa. Will start intravenous Solu-Medrol today and wait for clinical response. He is definitely a candidate for biologic therapy once all the labs requested are clear. HBsAg is negative. Subjective Date/time seen: 04/11/25 13:35 Interval history: The patient continued to have abdominal pain, requiring frequent morphine injections. Exam Narrative: Abdomen: Diffuse tenderness to palpation especially in lower quadrants. Rest of the exam unchanged from admission. Objective Data Vital Signs Vital Signs: Vital Signs - 24 hr 04/10/25 14:00 04/10/25 15:50 04/10/25 20:00 Temperature 98.0 F Pulse Rate 59 L Respiratory Rate 18 Blood Pressure 117/85 119/72 Pulse Oximetry 100 Oxygen Delivery Room Air 04/10/25 20:11 04/11/25 05:08 04/11/25 08:00 Temperature 97.3 F L 97.8 F Pulse Rate 62 73 Respiratory Rate 16 16 Blood Pressure 121/82 114/75 118/79 Pulse Oximetry 100 100 Oxygen Delivery 04/11/25 08:00 04/11/25 12:00 04/11/25 12:30 Temperature 97 F L Pulse Rate 56 L Respiratory Rate 18 Blood Pressure 117/74 122/85 Pulse Oximetry 100 100 Oxygen Delivery Room Air Room Air Intake/Output Intake/Output: Intake & Output 04/08/25 04/09/25 04/10/25 04/11/25 23:59 23:59 23:59 23:59 Intake Total 2584.2 135 Balance 2584.2 135 Meds/Results Medications: Active Medications Generic Name Dose Route Start Last Admin Trade Name Freq PRN Reason Stop Dose Admin Amlodipine Besylate 10 mg 04/10/25 09:00 04/11/25 09:14 Amlodipine Besylate 10 Mg Tablet PO 10 mg DAILY ORALIA Administration Ceftriaxone Sodium 1 gm in 50 mls @ 100 mls/hr 04/10/25 09:00 04/11/25 09:14 Rocephin 1 Gm/Ns 50 Ml IVPB 100 mls/hr Q24H ORALIA Administration Lactated Ringer's 1,000 mls @ 150 mls/hr 04/11/25 12:05 04/11/25 13:27 Lr - Lactated Ringers Iv IV CONT 150 mls/hr .[id number] ORALIA Infusion Lorazepam 0.5 mg 04/10/25 14:36 Lorazepam Inj (*Crx) 2 Mg/Ml Vial IV PUSH Q6H PRN ciwa Methylprednisolone Sodium Succinate 60 mg 04/11/25 09:00 04/11/25 09:14 Methylprednisolone Sod Succ 125 Mg Vial IV PUSH 60 mg DAILY ORALIA Administration Morphine Sulfate 2 mg 04/10/25 06:57 04/11/25 11:56 Morphine Sulfate (*Crx) 2 Mg/Ml Inj IV PUSH 2 mg Q4H PRN Administration Pain Rated 4-6 Morphine Sulfate 4 mg 04/10/25 06:57 04/11/25 06:25 Morphine Sulfate (*Crx) 4 Mg/Ml Inj IV PUSH 4 mg Q4H PRN Administration Pain Rated 7-10 Radiology Results: ITS Impressions Abdomen/Pelvis CT 04/10/25 05:13 Impression: Wall thickening extensively involving the descending and sigmoid colon and re ctum, as well as probably the distal/terminal ileum. Correlate for inflammatory bowel disease or other infectious/inflammatory enterocolitis. Diffuse hepatic steatosis. Labs Labs: Laboratory Results - last 24 hr 04/11/25 06:17 WBC 4.3 L RBC 4.05 L Hgb 11.4 L Hct 33.9 L MCV 83.7 MCH 28.1 MCHC 33.6 RDW 14.6 H Plt Count 345 MPV 8.8 Sodium 139 Potassium 3.7 Chloride 104 Carbon Dioxide 26 Anion Gap 9 BUN 4 L Creatinine 0.63 L Estim Creat Clear Calc 114 Estimated GFR > 60 Glucose 123 H Calcium 8.9 Magnesium 1.8 Total Bilirubin 0.5 AST 38 H ALT 33 Alkaline Phosphatase 50 Total Protein 7.2 Albumin 3.9 Hepatitis A IgM Ab Negative Hep Bs Antigen Negative Hep B Core IgM Ab Negative Hepatitis C Ab Screen Negative
[2025-04-12] VITALS (7 sets, daily range): BP systolic 107–115; BP diastolic 57–76; PULSE 58–70; RESP 13–20; TEMP 36.3–37.3; O2SAT 100
[2025-04-12] MEDS: MORPHINE SULFATE (*CRX) 4 MG/ML INJ IV PUSH ×2 (03:47→13:39)
[2025-04-12] MEDS: HYDROmorphone HCL INJ (*CRX) 2 MG/ML VIAL 0.5 MG IV PUSH (05:42)
[2025-04-12 06:52] LABS: Hematocrit 31.8 % (37.0-47.0); Hemoglobin 10.5 g/dL (12.0-15.0); Mean Corpuscular HGB Conc 33.0 g/dl (32-36); Mean Corpuscular Hemoglobin 27.4 pg (26-34); Mean Corpuscular Volume 83.0 fl (80-100); Platelet Count Result 357 k/mm3 (150-375); Red Blood Count 3.83 M/mm3 (4.2-5.4); White Blood Count 5.7 K/mm3 (4.5-10.0)
--- NOTE | 2025-04-12 07:03 | P.PNGI_ITS ---
Progress Note: A&P Assessment and Plan (1) Crohn disease: Code(s): K50.90 - Crohn's disease, unspecified, without complications Status: Acute Assessment and Plan: This patient has active, untreated Crohn's disease affecting the ileocolonic anastomosis and terminal ileum. We initiated intravenous Solu-Medrol yesterday, and we expect to see improvement in her symptoms over the next few days. In the interim, she'll remain on a full liquid diet. We're currently awaiting administrative approval to begin biologic therapy, for which she's considered a good candidate. Will consider Mirikuzumab (Omvoh) after discharge. Subjective Date/time seen: 04/12/25 07:03 Interval history: The patient continues to have right lower abdominal pain, moderate in intensity, although somewhat better than at admission. Her colonoscopy yesterday showed active Crohn's disease in the ileocolonic anastomosis and in the terminal ileum mucosa. she tolerated a full liquid diet. Review of Systems Review of Systems: All systems reviewed & are unremarkable except as noted in HPI and below Exam Narrative: Abdomen: Tenderness to deep palpation in the right lower quadrant, no rebound. Rectal exam within normal limits. Objective Data Vital Signs Vital Signs: Vital Signs - 24 hr 04/11/25 08:00 04/11/25 08:00 04/11/25 12:00 Temperature Pulse Rate Pulse Rate [Right Radial] Respiratory Rate Blood Pressure 118/79 117/74 Pulse Oximetry 100 Oxygen Delivery Room Air 04/11/25 12:30 04/11/25 13:30 04/11/25 13:40 Temperature 97 F L Pulse Rate 56 L 69 60 Pulse Rate [Right Radial] Respiratory Rate 18 10 L 26 H Blood Pressure 122/85 119/83 113/73 Pulse Oximetry 100 100 100 Oxygen Delivery Room Air Room Air Room Air 04/11/25 13:50 04/11/25 14:00 04/11/25 15:50 Temperature 98.0 F Pulse Rate 57 L 56 L Pulse Rate [Right Radial] Respiratory Rate 14 18 Blood Pressure 116/74 127/85 126/79 Pulse Oximetry 100 99 Oxygen Delivery Room Air 04/11/25 20:00 04/11/25 20:02 04/12/25 00:00 Temperature 99.9 F H Pulse Rate 61 Pulse Rate [Right Radial] 74 62 Respiratory Rate 20 Blood Pressure 121/71 Pulse Oximetry 97 Oxygen Delivery 04/12/25 05:17 Temperature 99.1 F Pulse Rate 70 Pulse Rate [Right Radial] Respiratory Rate 20 Blood Pressure 115/76 Pulse Oximetry 100 Oxygen Delivery Intake/Output Intake/Output: Intake & Output 04/09/25 04/10/25 04/11/25 04/12/25 23:59 23:59 23:59 23:59 Intake Total 2584.2 735 595 Balance 2584.2 735 595 Meds/Results Medications: Active Medications Generic Name Dose Route Start Last Admin Trade Name Freq PRN Reason Stop Dose Admin Amlodipine Besylate 10 mg 04/10/25 09:00 04/11/25 09:14 Amlodipine Besylate 10 Mg Tablet PO 10 mg DAILY ORALIA Administration Lorazepam 0.5 mg 04/10/25 14:36 Lorazepam Inj (*Crx) 2 Mg/Ml Vial IV PUSH Q6H PRN ciwa Methylprednisolone Sodium Succinate 60 mg 04/11/25 09:00 04/11/25 09:14 Methylprednisolone Sod Succ 125 Mg Vial IV PUSH 60 mg DAILY ORALIA Administration Morphine Sulfate 2 mg 04/10/25 06:57 04/11/25 22:42 Morphine Sulfate (*Crx) 2 Mg/Ml Inj IV PUSH 2 mg Q4H PRN Administration Pain Rated 4-6 Morphine Sulfate 4 mg 04/10/25 06:57 04/12/25 03:47 Morphine Sulfate (*Crx) 4 Mg/Ml Inj IV PUSH 4 mg Q4H PRN Administration Pain Rated 7-10 Radiology Results: ITS Impressions Abdomen/Pelvis CT 04/10/25 05:13 Impression: Wall thickening extensively involving the descending and sigmoid colon and rectum, as well as probably the distal/terminal ileum. Correlate for inf lammatory bowel disease or other infectious/inflammatory enterocolitis. Diffuse hepatic steatosis. Labs Labs: Laboratory Results - last 24 hr 04/11/25 04/12/25 06:17 05:59 WBC 5.7 RBC 3.83 L Hgb 10.5 L Hct 31.8 L MCV 83.0 MCH 27.4 MCHC 33.0 RDW 14.5 Plt Count 357 MPV 8.8 Sodium 139 Potassium 3.7 Chloride 104 Carbon Dioxide 26 Anion Gap 9 BUN 4 L Creatinine 0.63 L Estim Creat Clear Calc 114 Estimated GFR > 60 Glucose 123 H Calcium 8.9 Magnesium 1.8 Total Bilirubin 0.5 AST 38 H ALT 33 Alkaline Phosphatase 50 Total Protein 7.2 Albumin 3.9 Hepatitis A IgM Ab Negative Hep Bs Antigen Negative Hep B Core IgM Ab Negative Hepatitis C Ab Screen Negative
[2025-04-12 07:09] LABS: Alanine Aminotransferase 23 U/L (6-35); Albumin Level 3.4 g/dL (3.5-5.1); Alkaline Phosphatase 51 U/L (38-126); Anion Gap 6 mmol/L (4-12); Aspartate Amino Transferase 24 U/L (14-36); Bilirubin,Total 0.3 mg/dL (0.2-1.3); Blood Urea Nitrogen 2 mg/dL (7-17); Calcium 8.6 mg/dL (8.4-10.2); Carbon Dioxide 24 mmol/L (22-30); Chloride 107 mmol/L (98-107); Estimated CRCL calculation 129 ml/min; Estimated Glomerular Filt Rate > 60; Glucose 87 mg/dL (65-110); Magnesium 1.7 mg/dL (1.6-2.3); Potassium 2.9 mmol/L (3.4-5.0); Sodium 137 mmol/L (137-145); Total Protein 6.5 g/dL (6.3-8.2)
[2025-04-12] MEDS: MORPHINE SULFATE (*CRX) 2 MG/ML INJ IV PUSH (09:21)
--- NOTE | 2025-04-12 10:06 | PCNFU ---
Nutrition Follow-Up Complete: Inadequate energy intake related to diet order and altered GI function as evidenced by clear liquid diet order. Goal:Diet advanced with tolerance Pt slowly progressing towards goal Pt current nutrition is Full liquids, Ensure BID. Nutrition recommendation: change Ensure back to Ensure clear per pt request Last recorded weight is 73.3 kg. Bowel Motility: +BM 04/12 Labs Reviewed: Hgb:10.5, HCT:31.8, alb:3.4, K:2.9, BUN:2, Cr:0.55 Meds Noted: solumedrol Skin: WNL Additional Notes: Pt diet advanced to full liquids, pt tolerating fairly well. States she prefers the Ensure Clear so will change supplement. Agree with orders. Encouraged intake Monitor diet order, intake, wt, labs. Follow up in 3 days.
--- NOTE | 2025-04-12 10:45 | P.PNIM_ITS ---
Progress Note: A&P Assessment and Plan (1) Exacerbation of Crohn's disease: Code(s): K50.90 - Crohn's disease, unspecified, without complications Status: Acute Assessment and Plan: CT with evidence of wall thickening in descending and sigmoid colon and rectum as well as distal ileum. Patient with hx of crohns under no preventive tx and does not have a GI provider. ascending colon was previously removed * continue IV methylprednisolone 60mg daily * IV pain medications * full liquid diet will advance as tolerated per GI * GI consulted * Antiemetics * Colonoscopy 04/11/2025: Severe diffuse chronic disease a distal ileum with stenosis, ulcerations and diffuse erythema and edema mucosa * GI states they are on awaiting administrative approval to begin biologic therapy, for which she's considered a good candidate. Will consider Mirikuzumab (Omvoh) after discharge. (2) Acute hypokalemia: Code(s): E87.6 - Hypokalemia Status: Acute Assessment and Plan: * Trend 2.9 today * replenished with 40 PO and 40 IVPB (3) Hypomagnesemia: Code(s): E83.42 - Hypomagnesemia Status: Acute Assessment and Plan: * Trend 1.7 today * replenish as needed (4) HTN (hypertension) with goal to be determined: Code(s): I10 - Essential (primary) hypertension Status: Acute Assessment and Plan: * Reviewed today stable * continue amlodipine * Bp per unit protocol (5) Pyuria: Code(s): R82.81 - Pyuria Status: Acute Assessment and Plan: urinalysis grew Klebsiella pneumoniae pansensitive other than Macrobid * Ceftriaxone IV transitioned to 1 time dose of gentamicin IV (6) Transaminitis: Code(s): R74.01 - Elevation of levels of liver transaminase levels Status: Resolved Assessment and Plan: Noted on labs improving * hepatitis panel negative * hepatic steatosis noted on CT RESOLVED (7) Alcohol use: Code(s): F10.90 - Alcohol use, unspecified, uncomplicated Status: Acute Assessment and Plan: drinks 6 beers a day * no hx of withdraw * no anxiety, tremors or concerns as of now * NAEL w/ ativan for scores 8 or higher Plan Code status: Full code per patient DVT prophylaxis: SCD's Stress ulcer prophylaxis: NA PT/OT notes: Ambulatory Disposition: Patient continues admission to the medical unit for Crohn's exacerbation will continue with full liquid status and IV methylprednisone. patient ambulatory on own plan will be to discharge home when medically stable Time Spent With Patient Time with patient: 15 - 25 minutes Subjective Date/time seen: 04/12/25 10:45 Interval history: Patient is a 30-year-old female who was admitted for further evaluation and treatment Crohn's exacerbation 04/12/2025: Patient still reports moderate intermittent abdominal pain, she does states she can not tolerate the full liquid diet but gets mildly nauseous after eating. Review of Systems Review of Systems: All systems reviewed & are unremarkable except as noted in HPI and below Exam Narrative: General:Well developed well nourished patient HEENT: Normocephalic, atraumatic, PERRL, Sclerae anicteric, oral mucosa moist. Neck: Supple Resp: CTA Heart: RRR with no murmurs Abd: Soft and non distended but significant pain throughout most notably the RLQ. No guarding. + bowel sounds Skin: Warm and dry Extremities: No swelling, erythema or pain to palpation Neuro: Alert and Oriented x4. No focal neurological deficits. no tremor noted Objective Data Vital Signs Vital Signs: Vital Signs - 24 hr 04/11/25 12:00 04/11/25 12:30 04/11/25 13:30 Temperature 97 F L Pulse Rate 56 L 69 Pulse Rate [Right Radial] Respiratory Rate 18 10 L Blood Pressure 117/74 122/85 119/83 Pulse Oximetry 100 100 Oxygen Delivery Room Air Room Air 04/11/25 13:40 04/11/25 13:50 04/11/25 14:00 Temperature 98.0 F Pulse Rate 60 57 L 56 L Pulse Rate [Right Radial] Respiratory Rate 26 H 14 18 Blood Pressure 113/73 116/74 127/85 Pulse Oximetry 100 100 99 Oxygen Delivery Room Air Room Air 04/11/25 15:50 04/11/25 20:00 04/11/25 20:02 Temperature 99.9 F H Pulse Rate 61 Pulse Rate [Right Radial] 74 Respiratory Rate 20 Blood Pressure 126/79 121/71 Pulse Oximetry 97 Oxygen Delivery 04/12/25 00:00 04/12/25 05:17 Temperature 99.1 F Pulse Rate 70 Pulse Rate [Right Radial] 62 Respiratory Rate 20 Blood Pressure 115/76 Pulse Oximetry 100 Oxygen Delivery Intake/Output Intake/Output: Intake & Output 04/09/25 04/10/25 04/11/25 04/12/25 23:59 23:59 23:59 23:59 Intake Total 2584.2 735 595 Balance 2584.2 735 595 Meds/Results Medications: Active Medications Generic Name Dose Route Start Last Admin Trade Name Freq PRN Reason Stop Dose Admin Amlodipine Besylate 10 mg 04/10/25 09:00 04/12/25 09:11 Amlodipine Besylate 10 Mg Tablet PO 10 mg DAILY ORALIA Administration Lorazepam 0.5 mg 04/10/25 14:36 Lorazepam Inj (*Crx) 2 Mg/Ml Vial IV PUSH Q6H PRN ciwa Methylprednisolone Sodium Succinate 60 mg 04/11/25 09:00 04/12/25 09:11 Methylprednisolone Sod Succ 125 Mg Vial IV PUSH 60 mg DAILY ORALIA Administration Morphine Sulfate 2 mg 04/10/25 06:57 04/12/25 09:21 Morphine Sulfate (*Crx) 2 Mg/Ml Inj IV PUSH 2 mg Q4H PRN Administration Pain Rated 4-6 Morphine Sulfate 4 mg 04/10/25 06:57 04/12/25 03:47 Morphine Sulfate (*Crx) 4 Mg/Ml Inj IV PUSH 4 mg Q4H PRN Administration Pain Rated 7-10 Radiology Results: ITS Impressions Abdomen/Pelvis CT 04/10/25 05:13 Impression: Wall thickening extensively involving the descending and sigmoid colon and rectum, as well as probably the distal/terminal ileum. Correlate for inflammatory bowel disease or other infectious/inflammatory enterocolitis. Diffuse hepatic steatosis. Labs Labs: Laboratory Results - last 24 hr 04/12/25 05:59 WBC 5.7 RBC 3.83 L Hgb 10.5 L Hct 31.8 L MCV 83.0 MCH 27.4 MCHC 33.0 RDW 14.5 Plt Count 357 MPV 8.8 Sodium 137 Potassium 2.9 L Chloride 107 Carbon Dioxide 24 Anion Gap 6 BUN 2 L Creatinine 0.55 L Estim Creat Clear Calc 129 Estimated GFR > 60 Glucose 87 Calcium 8.6 Magnesium 1.7 Total Bilirubin 0.3 AST 24 ALT 23 Alkaline Phosphatase 51 Total Protein 6.5 Albumin 3.4 L Quality VTE Prophylaxis VTE prophylaxis: mechanical ordered -Patient's previous records reviewed on admission -ER notes reviewed in detail on admission -discussed all findings and current treatment plan with patient/Family/POA -Consultations reviewed for recommendations -Patient's disposition for safe discharge discussed with case repairer Dictation performed by [employer] direct speech recognition software, therefore apparel patternmaker variants and typographical errors may occur. Hospitalist MIPS Advance Care Plan I have confirmed that the patient's Advanced Care Plan is present, code status is documented, or surrogate decision maker is listed in patient medical record.: Yes Medication Reconciliation I have utilized all available resources to obtain, update and review the patients current medications (includes all prescriptions, OTC, herbals, cannabis, and nutritional supplements).: Yes The patient is not eligible for med reconciliation; the patient is in a emergent medical situation where delaying treatment would jeopardize the patients health.: No
[2025-04-12 14:52] LABS: NIL 0.01 IU/mL; Quantiferon TB Plus, 1T INDETERMINATE (NEGATIVE); TB1-NIL 0.00 IU/mL; TB2-NIL 0.00 IU/mL
[2025-04-12] MEDS: GENTAMICIN SULFATE INJ 360 MG in DEXTROSE 5% 100 ML 100 MG IVPB (15:31)
[2025-04-12] MEDS: POTASSIUM CHLORIDE INJ 40 MEQ in SODIUM CHLORIDE 0.9% IV 500 ML 130 MEQ IVPB (15:32)
[2025-04-12] MEDS: HYDROmorphone HCL INJ (*CRX) 2 MG/ML VIAL IV PUSH ×2 (15:39→22:19)
[2025-04-12] MEDS: POTASSIUM CHLORIDE 20 MEQ ER TABLET 40 MEQ PO (15:39)
[2025-04-12] MEDS: SODIUM CHLORIDE 0.9% IV 500 ML 50 ML (15:52)
[2025-04-13] MEDS: HYDROmorphone HCL INJ (*CRX) 2 MG/ML VIAL 1 MG IV PUSH ×2 (03:19→12:26)
[2025-04-13 05:25] VITALS: BP 123/76; PULSE 53; RESP 16; TEMP 36.7; O2SAT 99
[2025-04-13 06:14] LABS: Hematocrit 31.4 % (37.0-47.0); Hemoglobin 10.0 g/dL (12.0-15.0); Mean Corpuscular HGB Conc 31.8 g/dl (32-36); Mean Corpuscular Hemoglobin 27.1 pg (26-34); Mean Corpuscular Volume 85.1 fl (80-100); Platelet Count Result 377 k/mm3 (150-375); Red Blood Count 3.69 M/mm3 (4.2-5.4); White Blood Count 6.6 K/mm3 (4.5-10.0)
[2025-04-13 06:25] LABS: Alanine Aminotransferase 23 U/L (6-35); Albumin Level 3.3 g/dL (3.5-5.1); Alkaline Phosphatase 43 U/L (38-126); Anion Gap 6 mmol/L (4-12); Aspartate Amino Transferase 26 U/L (14-36); Bilirubin,Total 0.3 mg/dL (0.2-1.3); Blood Urea Nitrogen 3 mg/dL (7-17); Calcium 8.4 mg/dL (8.4-10.2); Carbon Dioxide 20 mmol/L (22-30); Chloride 110 mmol/L (98-107); Estimated CRCL calculation 131 ml/min; Estimated Glomerular Filt Rate > 60; Glucose 82 mg/dL (65-110); Magnesium 1.6 mg/dL (1.6-2.3); Potassium 3.5 mmol/L (3.4-5.0); Sodium 136 mmol/L (137-145); Total Protein 6.2 g/dL (6.3-8.2)
[2025-04-13] MEDS: HYDROmorphone HCL INJ (*CRX) 2 MG/ML VIAL IV PUSH (07:50)
--- NOTE | 2025-04-13 09:27 | P.PNIM_ITS ---
Progress Note: A&P Assessment and Plan (1) Exacerbation of Crohn's disease: Code(s): K50.90 - Crohn's disease, unspecified, without complications Status: Acute Assessment and Plan: CT with evidence of wall thickening in descending and sigmoid colon and rectum as well as distal ileum. Patient with hx of crohns under no preventive tx and does not have a GI provider. ascending colon was previously removed * continue IV methylprednisolone 60mg daily * IV pain medications * full liquid diet will advance as tolerated per GI * GI consulted * Antiemetics * Colonoscopy 04/11/2025: Severe diffuse chronic disease a distal ileum with stenosis, ulcerations and diffuse erythema and edema mucosa * GI states they are on awaiting administrative approval to begin biologic therapy, for which she's considered a good candidate. Will consider Mirikuzumab (Omvoh) after discharge. (2) Acute hypokalemia: Code(s): E87.6 - Hypokalemia Status: Acute Assessment and Plan: * Trend 2.9 today * replenished with 40 PO and 40 IVPB (3) Hypomagnesemia: Code(s): E83.42 - Hypomagnesemia Status: Acute Assessment and Plan: * Trend 1.7 today * replenish as needed (4) HTN (hypertension) with goal to be determined: Code(s): I10 - Essential (primary) hypertension Status: Acute Assessment and Plan: * Reviewed today stable * continue amlodipine * Bp per unit protocol (5) Pyuria: Code(s): R82.81 - Pyuria Status: Acute Assessment and Plan: urinalysis grew Klebsiella pneumoniae pansensitive other than Macrobid * Ceftriaxone IV transitioned to 1 time dose of gentamicin IV (6) Transaminitis: Code(s): R74.01 - Elevation of levels of liver transaminase levels Status: Resolved Assessment and Plan: Noted on labs improving * hepatitis panel negative * hepatic steatosis noted on CT RESOLVED (7) Alcohol use: Code(s): F10.90 - Alcohol use, unspecified, uncomplicated Status: Acute Assessment and Plan: drinks 6 beers a day * no hx of withdraw * no anxiety, tremors or concerns as of now * NAEL w/ ativan for scores 8 or higher Plan Code status: Full code per patient DVT prophylaxis: SCD's Stress ulcer prophylaxis: NA PT/OT notes: Ambulatory Disposition: Patient continues admission to the medical unit for Crohn's exacerbation will continue with full liquid status and IV methylprednisone. patient ambulatory on own plan will be to discharge home when medically stable Subjective Date/time seen: 04/13/25 09:27 Interval history: Patient is a 30-year-old female who was admitted for further evaluation and treatment Crohn's exacerbation 04/13/2025: Review of Systems Review of Systems: All systems reviewed & are unremarkable except as noted in HPI and below Exam Narrative: General:Well developed well nourished patient HEENT: Normocephalic, atraumatic, PERRL, Sclerae anicteric, oral mucosa moist. Neck: Supple Resp: CTA Heart: RRR with no murmurs Abd: Soft and non distended but significant pain throughout most notably the RLQ. No guarding. + bowel sounds Skin: Warm and dry Extremities: No swelling, erythema or pain to palpation Neuro: Alert and Oriented x4. No focal neurological deficits. no tremor noted Objective Data Vital Signs Vital Signs: Vital Signs - 24 hr 04/12/25 12:00 04/12/25 14:00 04/12/25 16:00 Temperature 97.3 F L Pulse Rate 63 Pulse Rate [Right Radial] 58 L 58 L Respiratory Rate 14 Blood Pressure 110/60 114/60 110/60 Pulse Oximetry 100 04/12/25 21:17 04/13/25 05:25 Temperature 97.7 F 98.1 F Pulse Rate 64 53 L Pulse Rate [Right Radial] Respiratory Rate 13 16 Blood Pressure 107/57 L 123/76 Pulse Oximetry 100 99 Intake/Output Intake/Output: Intake & Output 04/10/25 04/11/25 04/12/25 04/13/25 23:59 23:59 23:59 23:59 Intake Total 2584.2 735 595 550 Balance 2584.2 735 469 550 Meds/Results Medications: Active Medications Generic Name Dose Route Start Last Admin Trade Name Freq PRN Reason Stop Dose Admin Amlodipine Besylate 10 mg 04/10/25 09:00 04/13/25 07:51 Amlodipine Besylate 10 Mg Tablet PO 10 mg DAILY ORALIA Administration Dicyclomine HCl 25 mg 04/12/25 22:00 Dicyclomine Hcl 10 Mg Capsule PO Q8HR [facility] Hydromorphone HCl 1 mg 04/12/25 14:04 04/13/25 03:19 Hydromorphone Hcl Inj (*Crx) 2 Mg/Ml Vial IV PUSH 1 mg Q3H PRN Administration Pain Rated 4-6 Hydromorphone HCl 2 mg 04/12/25 14:04 04/13/25 07:50 Hydromorphone Hcl Inj (*Crx) 2 Mg/Ml Vial IV PUSH 2 mg Q6HR PRN Administration Pain Rated 7-10 Lorazepam 0.5 mg 04/10/25 14:36 Lorazepam Inj (*Crx) 2 Mg/Ml Vial IV PUSH Q6H PRN ciwa Methylprednisolone Sodium Succinate 60 mg 04/11/25 09:00 04/13/25 07:50 Methylprednisolone Sod Succ 125 Mg Vial IV PUSH 60 mg DAILY ORALIA Administration Miscellaneous Information 1 each 04/13/25 00:01 Clarify Bentyl--Unable To Do A 25 Mg Dose From 10 Mg Capsules, Is 20 Mg Dose Ok? XX 05/13/25 00:00 CLARIFY [facility] Radiology Results: ITS Impressions Abdomen/Pelvis CT 04/10/25 05:13 Impression: Wall thickening extensively involving the descending and sigmoid colon and rectum, as well as probably the distal/terminal ileum. Correlate for inflammatory bowel disease or other infectious/inflammatory enterocolitis. Diffuse hepatic steatosis. Labs Labs: Laboratory Results - last 24 hr 04/10/25 04/13/25 07:56 05:52 WBC 6.6 RBC 3.69 L Hgb 10.0 L Hct 31.4 L MCV 85.1 MCH 27.1 MCHC 31.8 L RDW 14.7 H Plt Count 377 H MPV 8.7 Sodium 136 L Potassium 3.5 Chloride 110 H Carbon Dioxide 20 L Anion Gap 6 BUN 3 L Creatinine 0.54 L Estim Creat Clear Calc 131 Estimated GFR > 60 Glucose 82 Calcium 8.4 Magnesium 1.6 Total Bilirubin 0.3 AST 26 ALT 23 Alkaline Phosphatase 43 Total Protein 6.2 L Albumin 3.3 L TB Test (QFT) Gold Plus Indeterminate A TB Test (QFT) Nil 0.01 TB Test Mitogen - Nil 0.42 TB Test Ag - Nil 1 0.00 TB Test Ag - Nil 2 0.00 Quality VTE Prophylaxis VTE prophylaxis: mechanical ordered -Patient's previous records reviewed on admission -ER notes reviewed in detail on admission -discussed all findings and current treatment plan with patient/Family/POA -Consultations reviewed for recommendations -Patient's disposition for safe discharge discussed with field nurse case manager Dictation performed by [employer] direct speech recognition software, therefore reinsurance clerk variants and typographical errors may occur. Hospitalist MIPS Advance Care Plan I have confirmed that the patient's Advanced Care Plan is present, code status is documented, or surrogate decision maker is listed in patient medical record.: Yes Medication Reconciliation I have utilized all available resources to obtain, update and review the patients current medications (includes all prescriptions, OTC, herbals, cannabis, and nutritional supplements).: Yes The patient is not eligible for med reconciliation; the patient is in a emergent medical situation where delaying treatment would jeopardize the patients health.: No
--- NOTE | 2025-04-13 10:23 | WPDGIPROGNO ---
Progress Note: A&P Assessment and Plan (1) Crohn disease: Code(s): K50.90 - Crohn's disease, unspecified, without complications Status: Acute Assessment and Plan: This patient, presenting with moderate to severe Crohn's disease in her small bowel and at the ileocolonic anastomosis, has made significant progress. She reports a reduction in both stool frequency and abdominal pain and is currently tolerating a liquid diet well. She'll be discharged home on prednisone 40 mg daily and dicyclomine 25 mg, to be taken three to four times daily as needed for pain. We're beginning the process with our office staff to secure approval for biologic therapy, likely Mirikizumab . Subjective Date/time seen: 04/13/25 10:23 Objective Data Vital Signs Vital Signs: Vital Signs - 24 hr 04/12/25 12:00 04/12/25 14:00 04/12/25 16:00 Temperature 97.3 F L Pulse Rate 63 Pulse Rate [Right Radial] 58 L 58 L Respiratory Rate 14 Blood Pressure 110/60 114/60 110/60 Pulse Oximetry 100 04/12/25 21:17 04/13/25 05:25 Temperature 97.7 F 98.1 F Pulse Rate 64 53 L Pulse Rate [Right Radial] Respiratory Rate 13 16 Blood Pressure 107/57 L 123/76 Pulse Oximetry 100 99 Intake/Output Intake/Output: Intake & Output 04/10/25 04/11/25 04/12/25 04/13/25 23:59 23:59 23:59 23:59 Intake Total 2584.2 750 354 6721 Balance 2584.2 403 194 7149 Meds/Results Medications: Active Medications Generic Name Dose Route Start Last Admin Trade Name Freq PRN Reason Stop Dose Admin Amlodipine Besylate 10 mg 04/10/25 09:00 04/13/25 07:51 Amlodipine Besylate 10 Mg Tablet PO 10 mg DAILY ORALIA Administration Dicyclomine HCl 25 mg 04/12/25 22:00 Dicyclomine Hcl 10 Mg Capsule PO Q8HR ORALIA Hydromorphone HCl 1 mg 04/12/25 14:04 04/13/25 03:19 Hydromorphone Hcl Inj (*Crx) 2 Mg/Ml Vial IV PUSH 1 mg Q3H PRN Administration Pain Rated 4-6 Hydromorphone HCl 2 mg 04/12/25 14:04 04/13/25 07:50 Hydromorphone Hcl Inj (*Crx) 2 Mg/Ml Vial IV PUSH 2 mg Q6HR PRN Administration Pain Rated 7-10 Lorazepam 0.5 mg 04/10/25 14:36 Lorazepam Inj (*Crx) 2 Mg/Ml Vial IV PUSH Q6H PRN ciwa Methylprednisolone Sodium Succinate 60 mg 04/11/25 09:00 04/13/25 07:50 Methylprednisolone Sod Succ 125 Mg Vial IV PUSH 60 mg DAILY ORALIA Administration Miscellaneous Information 1 each 04/13/25 00:01 Clarify Bentyl--Unable To Do A 25 Mg Dose From 10 Mg Capsules, Is 20 Mg Dose Ok? XX 05/13/25 00:00 CL[facility]IFY [facility] Radiology Results: ITS Impressions Abdomen/Pelvis CT 04/10/25 05:13 Impression: Wall thickening extensively involving the descending and sigmoid colon and rectum, as well as probably the distal/terminal ileum. Correlate for inflammatory bowel disease or other infectious/inflammatory enterocolitis. Diffuse hepatic steatosis. Labs Labs: Laboratory Results - last 24 hr 04/10/25 04/13/25 07:56 05:52 WBC 6.6 RBC 3.69 L Hgb 10.0 L Hct 31.4 L MCV 85.1 MCH 27.1 MCHC 31.8 L RDW 14.7 H Plt Count 377 H MPV 8.7 Sodium 136 L Potassium 3.5 Chloride 110 H Carbon Dioxide 20 L Anion Gap 6 BUN 3 L Creatinine 0.54 L Estim Creat Clear Calc 131 Estimated GFR > 60 Glucose 82 Calcium 8.4 Magnesium 1.6 Total Bilirubin 0.3 AST 26 ALT 23 Alkaline Phosphatase 43 Total Protein 6.2 L Albumin 3.3 L TB Test (QFT) Gold Plus Indeterminate A TB Test (QFT) Nil 0.01 TB Test Mitogen - Nil 0.42 TB Test Ag - Nil 1 0.00 TB Test Ag - Nil 2 0.00
--- NOTE | 2025-04-13 12:45 | P.DS_ITS ---
DS: Admitting Diagnosis Discharge Date 04/13/2025 Admitting Diagnosis exacerbation Crohn's disease DS: Discharge Diagnosis Discharge Diagnosis (1) Exacerbation of Crohn's disease: Code(s): K50.90 - Crohn's disease, unspecified, without complications Status: Acute (2) Acute hypokalemia: Code(s): E87.6 - Hypokalemia Status: Acute (3) Hypomagnesemia: Code(s): E83.42 - Hypomagnesemia Status: Acute (4) HTN (hypertension) with goal to be determined: Code(s): I10 - Essential (primary) hypertension Status: Acute (5) Pyuria: Code(s): R82.81 - Pyuria Status: Acute (6) Transaminitis: Code(s): R74.01 - Elevation of levels of liver transaminase levels Status: Resolved (7) Alcohol use: Code(s): F10.90 - Alcohol use, unspecified, uncomplicated Status: Acute DS: Summary Hospital Course Reason for hospitalization: exacerbation of Crohn's disease Hospital Course: Admission: Patient is a 30-year-old female with a past medical history of untreated Crohn's who presented emergency room for stomach pains. This pain started about 2 and half weeks ago and has been continuous. She noted some bright red blood in her stools starting last . The pain is diffuse but mostly in the right lower quadrant. She has had diarrhea daily because but today she is little bit more constipated. She said the stool was initially black but then turned to green and is now brown. She does not any nausea or vomiting but has not really eaten today. She has no history of C diff. Her last colonoscopy was in 2022 which showed Crohn's disease. 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 She states she has not been on preventative medication due to non adherence. She denies issues with access to care or affording medications. She denies chest pain, shortness of breath, fever, cough or any neurological symptoms. She was told at 1 point they were looking for colon cancer or cervical cancer and she can not remember which 1 but has never had a Pap smear. When asked why, she says she just has not made it a priority but will do so when she gets out of the hospital. She is from [facility] but is agreeable to continue to see GI here as an outpatient. She has no history of gastric ulcer or C diff. she says that every couple years she has to be hospitalized due to Crohn's but she battles stomach pains at home fairly often. She has a hx of HTN. No hx of IV drug use or liver problems. No dysuria or hematuria. Pt drinks about 6 beers a day. Has no hx of alcohol withdraw. She denies tremors or anxiety today. Hospital course: patient was admitted for further evaluation and treatment acute Crohn's exacerbation GI was consulted and she did undergo a colonoscopy which showed severe active ulcerating and inflammatory activity at the ileocolonic anastomosis and the distal ileal mucosa. patient had been initiated on IV methylprednisone daily continued on IV steroids and GI initiated on full liquid diet patient continued to improve and tolerate oral intake and was having regular bowel movements at time of discharge with overall improvement to abdominal pain. patient had received IV pain medication severe abdominal tenderness but symptoms improved with treatment. Patient was discharged home on prednisone 40 mg daily and dicyclomine 25 mg, to be taken three to four times daily as needed for pain. GI has initiated the process with their office staff to secure approval for biologic therapy, likely Mirikizumab. Plan for follow- up outpatient for continued treatment. Status at Discharge Functional status at discharge: independent ambulation Overall status at discharge: patient is progressing back to baseline Time Spent with Patient Time attestation: Total time spent providing and/or coordinating discharge services: Time spent: Greater than 30 minutes Exam Narrative: General:Well developed well nourished patient HEENT: Normocephalic, atraumatic, PERRL, Sclerae anicteric, oral mucosa moist. Neck: Supple Resp: CTA Heart: RRR with no murmurs Abd: Soft and non distended . No guarding. + bowel sounds Skin: Warm and dry Extremities: No swelling, erythema or pain to palpation Neuro: Alert and Oriented x4. No focal neurological deficits. no tremor noted DS: Data Data Completed and Pending Completed studies during hospitalization: Pending at discharge 04/11/25 13:26 Surgical [PTH] Routine Labs on day of discharge: Labs from last 24 hours 04/13/25 04/10/25 05:52 07:56 WBC 6.6 RBC 3.69 L Hgb 10.0 L Hct 31.4 L MCV 85.1 MCH 27.1 MCHC 31.8 L RDW 14.7 H Plt Count 377 H MPV 8.7 Sodium 136 L Potassium 3.5 Chloride 110 H Carbon Dioxide 20 L Anion Gap 6 BUN 3 L Creatinine 0.54 L Estim Creat Clear Calc 131 Estimated GFR > 60 Glucose 82 Calcium 8.4 Magnesium 1.6 Total Bilirubin 0.3 AST 26 ALT 23 Alkaline Phosphatase 43 Total Protein 6.2 L Albumin 3.3 L TB Test (QFT) Gold Plus Indeterminate A TB Test (QFT) Nil 0.01 TB Test Mitogen - Nil 0.42 TB Test Ag - Nil 1 0.00 TB Test Ag - Nil 2 0.00 Imaging Radiologist's impression: Radiology Results: ITS Impressions Abdomen/Pelvis CT 04/10/25 05:13 Impression: Wall thickening extensively involving the descending and sigmoid colon and rectum, as well as probably the distal/terminal ileum. Correlate for inflammatory bowel disease or other infectious/inflammatory enterocolitis. Diffuse hepatic steatosis. Discharge Plan Discharge Attending physician on discharge: Sabas Lopez Consulting providers: Chacorta Ott; Michelle Tovar Discharging Clinician: Michelle Tovar Anticipated Discharge Date/Time: 04/13/25 12:35 Patient Disposition: Home Activity: may shower and as tolerated Diet: as tolerated and bland Discharge Instructions: 1). Crohn's disease * Advance diet as tolerated * I have prescribed prednisone 40 mg daily and dicyclomine as needed for pain * follow-up with Dr. Leal in his office plan for starting biologic therapy How can you care for yourself at home? ? Keep track of any new symptoms or changes in your symptoms. ? Rest until you feel better. ? Be safe with medicines. Take your medicines exactly as prescribed. Call your doctor if you think you are having a problem with your medicine. ? Do not drive after taking a prescription pain medicine. ? Ensure to follow-up with primary care physician as indicated and provide updated medication list provided to you at discharge. When should you call for help? Call 911 anytime you think you may need emergency care. For example, call if: ? You passed out (lost consciousness). Call your doctor now or seek immediate medical care if: ? You have new symptoms like fever, difficulty breathing, Chest pain, vomiting, or rash. ? You have new or different pain. ? You are confused and are having trouble thinking clearly. ? Your symptoms are getting worse. Watch closely for changes in your health, and be sure to contact your doctor if: ? You do not get better as expected. Patient Instructions: Dicyclomine (By mouth), Prednisone (By mouth) Patient Language: Malawian Stand Alone Forms: General Discharge Information Follow-up/Referrals: Jerry Leal MD [Physician] - Call for Appointment Discharge Medications: New dicyclomine 10 mg Capsule 25 mg PO Q8HR Qty: 90 0RF prednisone 20 mg tablet 40 mg PO DAILY Qty: 60 0RF Continued amlodipine 10 mg tablet 10 mg PO DAILY Date of admission: 04/12/25 09:22 Primary Care Provider: PHYSICIAN,[employer] Admitting Provider: Solomon Weber Attending physician on admission: Delia Miller Condition: Stable Quality VTE Prophylaxis VTE prophylaxis: mechanical ordered -Patient's previous records reviewed on admission -ER notes reviewed in detail on admission -discussed all findings and current treatment plan with patient/Family/POA -Consultations reviewed for recommendations -Patient's disposition for safe discharge discussed with caseworker Dictation performed by [employer] direct speech recognition software, therefore speedometer inspector variants and typographical errors may occur. Hospitalist MIPS Heart Failure (Exclusion) Patient has history of Heart Transplant or Left Ventricular Assistive Device?: No IF YES, STOP HERE Heart Failure (Qualifier) Patient has current or prior documentation of LVEF less than or equal to 40%, or mod/servere depressed LVSF?: No IF NO, STOP HERE
[2025-04-13 14:00] VITALS: BP 151/76; PULSE 59; RESP 16; TEMP 36.8; O2SAT 96
--- NOTE | 2025-04-13 14:46 | PC.NURSE ---
On 04/13/25, the TAX APPRAISER, [Ginny Oseguera ], provided care and completed [facility] documentation on this patient. I have reviewed the TAX APPRAISER's documentation and agree with the findings.
[2025-04-17 00:49] LABS: TPMT Activity. 16
[2025-04-19 17:28] LABS: Calprotectin, Stool. 1020 mcg/g
== END 2025-04-13 16:45 | disposition home or self-care (01) | DRG 245 ==
LOC: ANHED 04-10 02:49 → ANH3MEDSUR 04-10 03:01
PROVIDERS: Internal Medicine Gastroenterology; Nurse Practitioner Family; Physician Assistant; Student in an Organized Health Care Education/Training Program; Admitting Provider Internal Medicine; Emergency Provider Physician Assistant; Visit Provider Internal Medicine
PROC: 0DJD8ZZ Inspection of Lower Intestinal Tract, Via Natural or Artificial Opening Endoscopic (ICD-10-PCS; CPT 45378; principal; 2025-04-11 15:00)
DX: K50.90 Crohn's disease, unspecified, without complications (principal); K63.89 Other specified diseases of intestine; I10 Essential (primary) hypertension; E87.6 Hypokalemia; E83.42 Hypomagnesemia; R82.81 Pyuria; F17.210 Nicotine dependence, cigarettes, uncomplicated; F10.90 Alcohol use, unspecified, uncomplicated; Z90.49 Acquired absence of other specified parts of digestive tract
CPT/HCPCS: 36415; 74177; 80053; 80074; 81001; 81025; 82657; 83690; 83735; 83993; 85025; 85027; 86140; 86480; 87086; 87186; 87340; 88305; 96365; 96366; 96367; 96375; 99285; A9270; G0378; G0379; J0696; J1171; J1580; J2003; J2270; J2405; J2704; J2919; J3475; J3480; J7030; J7040; J7120; Q9967